=== PATIENT | female | born 1950 | race Hispanic/Latino ===

== ENCOUNTER 2019-08-30 17:38 | Emergency (ER) | payer MEDICARE ==
--- NOTE | 2019-08-30 19:11 | Emergency Department Report ---
Blank Doc - Documentation Documentation: 69-year-old female that is a poor historian presents with fall and hit head. Stated had dizziness and then fell. This initial assessment/diagnostic orders/clinical plan/treatment(s) is/are subject to change based on patient's health status, clinical progression and re-assessment by fellow clinical providers in the ED. Further treatment and workup at subsequent clinical providers discretion. Patient/guardians urged not to elope from the ED as their condition may be serious if not clinically assessed and managed. Initial orders include: 1- Patient sent to [facility] for further evaluation and treatment 2- labs 3- CT scans 4- EKG 5- CXR
[2019-08-30 19:59] LABS: Bacteria,Urine 1+ /HPF (Negative); Bilirubin,Urine NEG (Negative); Blood,Urine NEG (Negative); Color,Urine Straw (Yellow); Protein,Urine <15 mg/dL mg/dL (Negative); RBC,Urine < 1.0 /HPF (0.0-6.0); Urobilinogen,Urine < 2.0 mg/dL (<2.0); WBC,Urine < 1.0 /HPF (0.0-6.0)
--- NOTE | 2019-08-30 20:02 | Cat Scan Report ---
CT head without contrast HISTORY: dizziness/syncope. TECHNIQUE: Axial imaging performed from the skull apex through the skull base without the use of con trast. All CT scans at this location are performed using CT dose reduction for ALARA by means of aut omated exposure control. COMPARISON: None FINDINGS: Overall there is mild motion artifact. Parenchyma: No acute intracranial hemorrhage or parenchymal abnormality. Ventricles: There is mild diffuse brain atrophy with commensurate ventricular enlargement which is l ikely age appropriate. Soft tissues: Soft tissues including the orbits appear normal. Bones: No acute osseous abnormality. Sinuses: Complete opacification of the left frontal sinus. Otherwise clear sinuses and mastoid air c ells are clear. IMPRESSION: No acute intracranial abnormality. Chronic left frontal sinusitis. Signer Name: Javier Adams MD Signed: 08/30/2019 7:57 PM Workstation Name: [id number]
[2019-08-30 20:46] LABS: INR 0.93 (0.87-1.13)
[2019-08-30 20:47] LABS: Partial Thromboplastin Time 27.4 Sec. (24.2-36.6)
--- NOTE | 2019-08-30 20:47 | XRay Report ---
CHEST 2 VIEWS INDICATION: Chest Pain. Acute fall COMPARISON: None FINDINGS: Support devices: None. Heart: Within normal limits. Lungs/pleura: No acute air space or interstitial disease. No pneumothorax. Additional findings: None. IMPRESSION: 1. No acute findings. Signer Name: Javier Adams MD Signed: 08/30/2019 8:43 PM Workstation Name: [id number]
[2019-08-30 20:49] LABS: Basophils # (Auto) 0.1 K/mm3 (0.0-0.1); Basophils % (Auto) 0.8 % (0.0-1.8); Eosinophils % (Auto) 0.1 % (0.0-4.3); Hemoglobin 15.3 gm/dl (10.1-14.3); Lymphocytes # (Auto) 2.7 K/mm3 (1.2-5.4); Lymphocytes % (Auto) 28.1 % (13.4-35.0); Mean Corpuscular HGB Conc 34 % (30-34); Mean Corpuscular Volume 106 fl (79-97); Monocytes # (Auto) 0.6 K/mm3 (0.0-0.8); Monocytes % (Auto) 6.6 % (0.0-7.3); Platelet Count 376 K/mm3 (140-440); Red Blood Count 4.26 M/mm3 (3.65-5.03); Red Cell Distribution Width 14.3 % (13.2-15.2)
[2019-08-30 20:58] LABS: Alanine Aminotransferase 9 units/L (7-56); Albumin 4.4 g/dL (3.9-5); BUN/Creatinine Ratio 18; Blood Urea Nitrogen 11 mg/dL (7-17); Calcium 9.7 mg/dL (8.4-10.2); Hemolysis Index 24
--- NOTE | 2019-08-30 21:24 | Cat Scan Report ---
Examination: CT of the cervical spine without contrast, 08/30/2019 Clinical information: Dizziness and syncope. Fall. Comparison: No relevant prior studies are available for comparison. Technical: Multiple axial CT images of the cervical spine were obtained without intravenous contrast. Sagittal and coronal reformats were obtained. All CTs at this facility utilize dose reduction techn iques including automated exposure control, iterative reconstruction and weight based dosing when georgette ropriate to reduce patient radiation dose to as low as reasonable achievable. Findings: There are moderately advanced bony degenerative changes throughout the cervical spine evidenced by mu ltilevel disc space narrowing and confluent anterior osteophyte formation, most prominent at the C4-C 5 and C5-C6 levels. No acute fracture of the cervical vertebral bodies is identified. Review of soft tissue structures demonstrates no evidence of acute soft tissue abnormality. Impression: 1. Moderate multilevel degenerative changes throughout the thoracic spine without evidence of acute fracture. Signer Name: Zainab Fox MD Signed: 08/30/2019 9:20 PM Workstation Name: [id number]
[2019-08-30 21:41] VITALS: BP 110/59
--- NOTE | 2019-08-30 21:44 | Emergency Department Report ---
ED Fall HPI - General Chief Complaint: Fall Stated Complaint: GROUND LEVEL FALL/HIT HEAD Time Seen by Provider: 08/30/19 19:08 Source: EMS Mode of arrival: Stretcher Limitations: No Limitations - History of Present Illness Initial Comments: 69-year-old female presents from [facility] with ground-level fall. Patient states he tripped and fell hitting her head. No LOC reported. Patient has a past medical history of schizophrenia, anxiety, depression, muscle weakness, cervical radiculopathy, CVA, hyperlipidemia as per medical record from [facility]. As per triage and states that patient wasn't dizzy prior to falling. Patient denies that and states that she tripped. She currently denies any pain. She denies headache, chest pain, shortness of breath, abdominal pain, show many pain, numbness, or weakness. - Related Data Allergies Allergy/AdvReac Type Severity Reaction Status Date / Time No Known Allergies Allergy Unverified 08/30/19 18:56 ED Review of Systems ROS: Stated complaint: GROUND LEVEL FALL/HIT HEAD Other details as noted in HPI Comment: All other systems reviewed and negative ED Past Medical Hx - Past Medical History Additional medical history: LIVER FUNCTION ABNORMAL ANIXETY DISORDER DEPRESSIVE DISORDER UTI MUSCLE WEAKNESS - Social History Smoking Status: Never Smoker Substance Use Type: None ED Physical Exam - General Limitations: Other - Other Other exam information: General: No acute distress Head: Atraumatic Eyes: normal appearance ENT: Moist mucous membranes Neck: Normal appearance, no midline tenderness Chest: Clear to auscultation bilaterally CV: Regular rate and rhythm Abdomen: Soft, normal bowel sounds, nontender, nondistended, no rebound or guarding Back: Normal inspection Extremity: Normal inspection infection, full range of motion Neuro: Alert O x 3, no facial asymmetry, speech clear, no gross motor sensory deficit, finger nose finger function intact Psych: Appropriate behavior Skin: No rash ED Course Vital Signs 08/30/19 08/30/19 19:10 21:20 Temperature 98.2 F 97.8 F Pulse Rate 88 98 H Respiratory 20 18 Rate Blood Pressure 91/48 Blood Pressure 110/59 [Left] O2 Sat by Pulse 95 97 Oximetry ED Medical Decision Making - Lab Data Result diagrams: 08/30/19 20:10 08/30/19 20:10 Lab Results 11/03/19 11/03/19 11/03/19 Range/Units 19:39 20:10 20:10 WBC 9.8 (4.5-11.0) K/mm3 RBC 4.26 (3.65-5.03) M/mm3 Hgb 15.3 H (10.1-14.3) gm/dl Hct 45.0 H (30.3-42.9) % MCV 106 H (79-97) fl MCH 36 H (28-32) pg MCHC 34 (30-34) % RDW 14.3 (13.2-15.2) % Plt Count 376 (140-440) K/mm3 Lymph % (Auto) 28.1 (13.4-35.0) % [place] % (Auto) 6.6 (0.0-7.3) % Eos % (Auto) 0.1 (0.0-4.3) % Baso % (Auto) 0.8 (0.0-1.8) % Lymph # 2.7 (1.2-5.4) K/mm3 [place] # 0.6 (0.0-0.8) K/mm3 Eos # 0.0 (0.0-0.4) K/mm3 Baso # 0.1 (0.0-0.1) K/mm3 Seg Neutrophils % 64.4 (40.0-70.0) % Seg Neutrophils # 6.3 (1.8-7.7) K/mm3 PT 12.4 (12.2-14.9) Sec. INR 0.93 (0.87-1.13) APTT 27.4 (24.2-36.6) Sec. Sodium (137-145) mmol/L Potassium (3.6-5.0) mmol/L Chloride (98-107) mmol/L Carbon Dioxide (22-30) mmol/L Anion Gap mmol/L BUN (7-17) mg/dL Creatinine (0.7-1.2) mg/dL Estimated GFR ml/min BUN/Creatinine Ratio % Glucose (65-100) mg/dL Calcium (8.4-10.2) mg/dL Total Bilirubin (0.1-1.2) mg/dL AST (5-40) units/L ALT (7-56) units/L Alkaline Phosphatase (35-129) units/L Troponin T (0.00-0.029) ng/mL Total Protein (6.3-8.2) g/dL Albumin (3.9-5) g/dL Albumin/Globulin Ratio % Urine Color Straw (Yellow) Urine Turbidity Clear (Clear) Urine pH 6.0 (5.0-7.0) Ur Specific Kohler 1.002 L (1.003-1.030) Urine Protein <15 mg/dl (Negative) mg/dL Urine Glucose (UA) Neg (Negative) mg/dL Urine Ketones Neg (Negative) mg/dL Urine Blood Neg (Negative) Urine Nitrite Neg (Negative) Urine Bilirubin Neg (Negative) Urine Urobilinogen < 2.0 (<2.0) mg/dL Ur Leukocyte Esterase Neg (Negative) Urine WBC (Auto) < 1.0 (0.0-6.0) /HPF Urine RBC (Auto) < 1.0 (0.0-6.0) /HPF Urine Bacteria (Auto) 1+ (Negative) /HPF 08/30/19 Range/Units 20:10 WBC (4.5-11.0) K/mm3 RBC (3.65-5.03) M/mm3 Hgb (10.1-14.3) gm/dl Hct (30.3-42.9) % MCV (79-97) fl MCH (28-32) pg MCHC (30-34) % RDW (13.2-15.2) % Plt Count (140-440) K/mm3 Lymph % (Auto) (13.4-35.0) % [place] % (Auto) (0.0-7.3) % Eos % (Auto) (0.0-4.3) % Baso % (Auto) (0.0-1.8) % Lymph # (1.2-5.4) K/mm3 [place] # (0.0-0.8) K/mm3 Eos # (0.0-0.4) K/mm3 Baso # (0.0-0.1) K/mm3 Seg Neutrophils % (40.0-70.0) % Seg Neutrophils # (1.8-7.7) K/mm3 PT (12.2-14.9) Sec. INR (0.87-1.13) APTT (24.2-36.6) Sec. Sodium 135 L (137-145) mmol/L Potassium 4.1 (3.6-5.0) mmol/L Chloride 97.6 L (98-107) mmol/L Carbon Dioxide 23 (22-30) mmol/L Anion Gap 19 mmol/L BUN 11 (7-17) mg/dL Creatinine 0.6 L (0.7-1.2) mg/dL Estimated GFR > 60 ml/min BUN/Creatinine Ratio 18 % Glucose 142 H (65-100) mg/dL Calcium 9.7 (8.4-10.2) mg/dL Total Bilirubin 0.50 (0.1-1.2) mg/dL AST 17 (5-40) units/L ALT 9 (7-56) units/L Alkaline Phosphatase 90 (35-129) units/L Troponin T < 0.010 (0.00-0.029) ng/mL Total Protein 7.1 (6.3-8.2) g/dL Albumin 4.4 (3.9-5) g/dL Albumin/Globulin Ratio 1.6 % Urine Color (Yellow) Urine Turbidity (Clear) Urine pH (5.0-7.0) Ur Specific Kohler (1.003-1.030) Urine Protein (Negative) mg/dL Urine Glucose (UA) (Negative) mg/dL Urine Ketones (Negative) mg/dL Urine Blood (Negative) Urine Nitrite (Negative) Urine Bilirubin (Negative) Urine Urobilinogen (<2.0) mg/dL Ur Leukocyte Esterase (Negative) Urine WBC (Auto) (0.0-6.0) /HPF Urine RBC (Auto) (0.0-6.0) /HPF Urine Bacteria (Auto) (Negative) /HPF - EKG Data -: EKG Interpreted by Me (artifact) EKG shows normal: sinus rhythm, ST-T waves (no stemi) - Radiology Data Radiology results: report reviewed CT head without contrast HISTORY: dizziness/syncope. TECHNIQUE: Axial imaging performed from the skull apex through the skull base without the use of contrast. All CT scans at this location are performed using CT dose reduction for ALARA by means of automated exposure control. COMPARISON: None FINDINGS: O verall there is mild motion artifact. Parenchyma: No acute intracranial hemorrhage or parenchymal abnormality. Ventricles: There is mild diffuse brain atrophy with commensurate ventricular enlargement which is likely age appropriate. Soft tissues: Soft tissues including the orbits appear normal. Bon es: No acute osseous abnormality. Sinuses: Complete opacification of the left frontal sinus. Otherwise clear sinuses and mastoid air cells are clear. IMPRESSION: No acute intracranial abnormality. Chronic left frontal sinusitis. CHEST 2 VIEWS INDICATION: Chest Pain. Acute fall COMPARISON: None FINDINGS: Support devices: None. Heart: Within normal limits. Lungs/pleura: No acute air space or interstitial disease. No pneumothorax. Additional findings: None. IMPRESSION: 1. No acute findings. CT of the cervical spine without contrast, 08/30/2019 Clinical information: Dizziness and syncope. Fall. Comparison: No relevant prior studies are available for comparison. Technical: Multiple axial CT images of the cervical spine were obtained without intravenous contrast. Sagittal and coronal reformats were obtained. All CTs at this facility utilize dose red uction techniques including automated exposure control, iterative reconstruction and weight based dosing when appropriate to reduce patient radiation dose to as low as reasonable achievable. Findings: There are moderately advanced bony degenerative changes throughout the cervical spine evidenced by multilevel disc space narrowing and confluent anterior osteophyte formation, most prominent at the C4-C5 and C5-C6 levels. No acute fracture of the cervical vertebral bodies is identified. Review of soft tissue structures demonstrates no evidence of acute soft tissue abnormality. Impression: 1. Moderate multilevel degenerative changes throughout the thoracic spine without evidence of acute fracture. - Medical Decision Making Patient asymptomatic at time of my evaluation. ED workup including imaging reports and labs, and urine are unremarkable. Patient will be discharged back to psychiatric program. - Differential Diagnosis fall, dehydration, near syncope Critical Care Time: No Critical care attestation.: If time is entered above; I have spent that time in minutes in the direct care of this critically ill patient, excluding procedure time. ED Disposition Clinical Impression: Fall, Minor head injury Disposition: DC-01 TO HOME OR SELFCARE Is pt being admited?: No Does the pt Need Aspirin: No Condition: Stable Instructions: Fall Prevention for Older Adults (ED), Minor Head Injury (ED) Additional Instructions: Follow-up with your doctor or doctor/clinic provided. Return if symptoms worsen as indicated by your discharge instructions. Referrals: DOT MEDELLIN MD [Primary Care Provider] - 3-5 Days Time of Disposition: 22:21
== END 2019-08-30 23:05 | disposition home or self-care (01) ==
LOC: ED 17:38
DX: S09.90XA Unspecified injury of head, initial encounter (principal); F20.9 Schizophrenia, unspecified; F41.9 Anxiety disorder, unspecified; F32.9 Major depressive disorder, single episode, unspecified; M54.12 Radiculopathy, cervical region; E78.5 Hyperlipidemia, unspecified; W18.09XA Striking against other object with subsequent fall, initial encounter; Y93.84 Activity, sleeping; Y92.89 Other specified places as the place of occurrence of the external cause; Y99.8 Other external cause status
CPT/HCPCS: 36415; 70450; 71046; 72125; 80053; 81001; 84484; 85025; 85610; 85730; 87086; 93005; 93010; 99285